=== PATIENT | female | born 2000 | race Caucasian/White ===

== ENCOUNTER → 2020-08-28 | Outpatient (CLI) | payer OTHER ==
--- NOTE | 2020-08-28 12:45 | RAD ---
Examination: Ultrasound abdomen complete HISTORY: History of abdominal pain COMPARISON: None available Findings: The liver length measures 15.1 cm. The gallbladder is mildly distended. The gallbladder wall thicknes s measures 2 mm. The right kidney is 10.0 x 4.1 x 4.0 cm. The left kidney measures 10.1 x 4.4 x 4.5 c m. The common bile duct measures 2 mm in transverse dimension.The pancreas is not well-visualized due to bowel gas. The spleen measures 11.3 cm in length. The visualized aorta, IVC within normal limits of dimension. IMPRESSION: Unremarkable visualized exam. Electronically signed by: Mack Lopez MD (08/28/2020 12:43 PM) [id number]
== END ==
LOC: US 07:52
PROVIDERS: ATTEND Nurse Practitioner Gerontology
DX: R10.84 Generalized abdominal pain (principal)
CPT/HCPCS: 76700